=== PATIENT | female | born 1950 | race Caucasian/White ===

== ENCOUNTER → 2018-06-07 | Outpatient (CLI) | payer OTHER | LOC: HYPER 06-06 06:30 | DX: T81.31XA Disruption of external operation (surgical) wound, not elsewhere classified, initial encounter (principal); I10 Essential (primary) hypertension; M19.91 Primary osteoarthritis, unspecified site; M79.605 Pain in left leg; F41.9 Anxiety disorder, unspecified; Z98.49 Cataract extraction status, unspecified eye; Z96.652 Presence of left artificial knee joint; Y83.8 Other surgical procedures as the cause of abnormal reaction of the patient, or of later complication, without mention of misadventure at the time of the procedure ==

== ENCOUNTER → 2018-06-19 | Outpatient (CLI) | payer OTHER | LOC: HYPER 06:42 | DX: T81.31XD Disruption of external operation (surgical) wound, not elsewhere classified, subsequent encounter (principal); I10 Essential (primary) hypertension; M19.90 Unspecified osteoarthritis, unspecified site; F41.9 Anxiety disorder, unspecified; Z96.652 Presence of left artificial knee joint; Z98.49 Cataract extraction status, unspecified eye; Y83.8 Other surgical procedures as the cause of abnormal reaction of the patient, or of later complication, without mention of misadventure at the time of the procedure ==